=== PATIENT | male | born 1965 | race Caucasian/White ===

== ENCOUNTER 2023-06-27 12:48 | Emergency (ER) | payer OTHER, SELFPAY ==
[2023-06-27 12:51] VITALS: BP 113/81
--- NOTE | 2023-06-27 14:22 | ED.GENMED ---
History of Present Illness
General
Chief Complaint: Musculo-Skeletal Complaint
Time Seen by Provider: 06/27/23 14:22
Travel History
Have you had any contact with someone who has COVID-19?: No
Do you have any symptoms of coronavirus? Fever > 100 degrees, chills, cough, shortness of breath, sore throat, loss of taste or smell, muscle aches, or headache?: No
History of Present Illness
History of Present Illness:
HPI: Patient twisted awkwardly at the counter and now has severe pain in the right calf. His right foot was planted at the time. He felt and heard a pop. He did not have any preceding calf pain. Pain worsens with dorsiflexion.
EXAM:
GENERAL: Well appearing in no distress
HEENT: Moist oral mucosa
NEUROLOGIC: Excellent strength all extremities, no coordination deficits
PSYCHIATRIC: Appropriate mental status, normal insight and judgement
EXTREMITIES: There is mild tenderness at the right gastroc region, there is no swelling noted, there is no ecchymosis noted, he has good function distally
SKIN: No rash, no lesions
ED COURSE:
2:35 PM: I initially evaluated patient
NUMBER AND COMPLEXITY OF PROBLEMS ADDRESSED AT THE ENCOUNTER
� Chronic conditions affecting care: Has had C5 fusion, depression, Sjogren's
� Acute Exacerbation and/or Progression of Chronic Illness: This is an acute problem
� Differential Diagnosis includes: Gastroc tear, Achilles rupture unlikely based on physical exam, DVT very unlikely based on history and physical examination
AMOUNT AND/OR COMPLEXITY OF DATA TO BE REVIEWED AND ANALYZED
� I performed an independent evaluation of and my interpretation is:
EKG:
CT:
X-rays:
Laboratory Studies:
Other:
� Review of other/old records: No old records available for review in [facility]
� Clinical information was obtained by an independent historian: I spoke to the at bedside
� Prescriptions/Medications Considered but not given: Offered and considered splinting however the patient feels comfortable which is crutches for now
� Further testing considered but not performed: MRI would not be considered necessary under emergent condition
RISK OF COMPLICATIONS AND/OR MORBIDITY OR MORTALITY OF PATIENT MANAGEMENT
� Social determinants of health affecting care: Lives at home with
� Discussion with other providers: At 2:39 PM: I did notify Dr. Jordan of patient's visit to the ED who agrees with plan of crutches
� Escalation of care including admission/observation vs risk of discharge considered: Will give crutches and he is to follow-up with Ortho as an outpatient
Phy Exam
Physical Exam
Physical Exam:
See HPI
Course
Orders/Labs/Results
Orders:
Orders
06/27/23 14:42
Crutches-Treatment ONCE
Vital Signs
Initial and Last Documented VS:
Initial Vital Signs
Temp Pulse Resp BP Pulse Ox
97.6 F 68 18 113/81 97
06/27/23 12:51 06/27/23 12:51 06/27/23 12:51 06/27/23 12:51 06/27/23 12:51
Last Documented Vital Signs
Temp Pulse Resp BP Pulse Ox
97.6 F 68 18 113/81 97
06/27/23 12:51 06/27/23 12:51 06/27/23 12:51 06/27/23 12:51 06/27/23 12:51
*Critical Care Note
Total Time (30-74mins, 75-104mins- exclusive of procedures): Not Applicable
ED Attending Note
-
Portions of this chart may have been created with voice recognition software.� Occasional wrong word or��sound alike� substitutions may have occurred due to the inherent limitations of voice recognition software.
Discharge Plan
Departure
Patient Disposition: Home (Routine Discharge)
Date of Disposition: 06/27/23
Time of Disposition: 14:49
Patient with high blood pressure during this ER visit?: Yes
Discharge Problem:
Gastrocnemius tear
Instructions: BLOOD PRESSURE
Referrals:
Filiberto Jordan MD [Active] - Follow up in 2-3 days
Robert Potter DO [Family Provider] -
Activity Restrictions/Additional Instructions:
Today, I discussed with Dr. Jordan, with [facility] orthopedics. I recommend that you follow-up with his office this week. Return here if worse. Use crutches as needed for comfort.
Interventions
Interventions:
*Risk Screen - Suicide Last Done: 06/27/23 12:51
*General Assessment Last Done: 06/27/23 12:51
*Neglect/Abuse Screening Last Done: 06/27/23 12:51
*ED COVID-19 Vaccine History Last Done: 06/27/23 14:31
== END 2023-06-27 15:08 | disposition home or self-care (01) ==
LOC: EMR 12:48
PROVIDERS: EMERGENCY PHYSICIAN Emergency Medicine; FAMILY PHYSICIAN Family Medicine
DX: S86.811A Strain of other muscle(s) and tendon(s) at lower leg level, right leg, initial encounter (principal); X50.1XXA Overexertion from prolonged static or awkward postures, initial encounter; M79.661 Pain in right lower leg; R03.0 Elevated blood-pressure reading, without diagnosis of hypertension; F32.A Depression, unspecified; M35.00 Sjogren syndrome, unspecified; M43.22 Fusion of spine, cervical region; Z88.1 Allergy status to other antibiotic agents
CPT/HCPCS: 99283

== ENCOUNTER → 2024-01-27 16:44 | Outpatient (REF) | payer OTHER, SELFPAY | LOC: PAVMRI 16:44 | PROVIDERS: ATTENDING PHYSICIAN Physician Assistant Medical; FAMILY PHYSICIAN Family Medicine | DX: M48.062 Spinal stenosis, lumbar region with neurogenic claudication (principal); M54.16 Radiculopathy, lumbar region | CPT/HCPCS: 72148 ==